=== PATIENT | male | born 1995 | race Caucasian/White ===

== ENCOUNTER 2016-07-26 11:59 | Emergency (ER) | payer BC ==
[~2016-07-26] VITALS: Ht 170.2 cm; Wt 69.4 kg
[2016-07-26 13:18] LABS: MCH 30.4 PG (29.0-34.0); MCHC 34.2 G/DL (30.0-36.0); MCV 88.9 FL (86-99); MEAN PLAT.VOLUME 9.5 uM^3 (9.0-12.4); PLATELET COUNT 224 K/uL (156-360); RBC DIS.WIDTH-SD 41.9 % (39-53); WHITE BLOOD COUNT 7.3 K/uL (4.1-10.2)
[2016-07-26 13:31] LABS: CHLORIDE 103 mEq/L (99-109); POTASSIUM 3.9 mEq/L (3.7-5.4); SODIUM 139 mEq/L (136-147)
[2016-07-26 13:32] LABS: GLUCOSE 94 mg/dL (70-99)
[2016-07-26 13:34] LABS: ANION GAP 11 MEQ/L (2-14)
[2016-07-26 13:36] LABS: GFR ESTIMATE (CALCULATED) > 59 mL/min/
[2016-07-26 13:37] LABS: UREA NITROGEN (BUN) 20 mg/dL (9-23)
[2016-07-26 15:15] LABS: D-DIMER ELISA < 0.15 mg/L FEU (< 0.57)
[2016-07-26 15:59] VITALS: BP 145/90
== END 2016-07-26 16:01 | disposition home or self-care (01) ==
LOC: EME 11:59
PROVIDERS: Physician Assistant
DX: R06.00 Dyspnea, unspecified (principal); R07.89 Other chest pain
CPT/HCPCS: 71020; 80048; 85027; 85379; 93005; 99281; 99284